=== PATIENT | female | born 1935 | race Caucasian/White ===

== ENCOUNTER 2016-12-03 15:25 | Emergency (ER) | payer MEDICARE, OTHER, BC ==
[2016-12-03 15:51] VITALS: BP 137/58
--- NOTE | 2016-12-03 16:35 | UC ---
Lower Extremity/Ankle HPI - HPI Summary HPI Summary: 80 yo female misjudged toilet seat and slide of injuring left side this occurred 2 weeks ago initially had left sided RAY/left neck pain and left foot pain the foot pain in the only pain she currently has no n/v/d no cp or sob - History of Current Complaint Chief Complaint: UCLowerExtremity Stated Complaint: FOOT INJURY Time Seen by Provider: 12/03/16 16:16 Hx Obtained From: Patient Onset/Duration: Sudden Onset, Lasting Weeks Severity Initially: Moderate Severity Currently: Mild Pain Intensity: 4 Pain Scale Used: 0-10 Numeric Aggravating Factor(s): Standing, Ambulation Alleviating Factor(s): Rest Able to Bear Weight: Yes - Allergies/Home Medications Allergies/Adverse Reactions: Allergies Allergy/AdvReac Type Severity Reaction Status Date / Time Bee Venom Allergy Swelling Verified 12/03/16 15:51 Sulfa Antibiotics Allergy Hives Verified 12/03/16 15:51 Home Medications: Home Medications Etanercept [Enbrel] 12/03/16 [History] Folic Acid TAB* [Folvite TAB*] 1 mg PO DAILY 12/03/16 [History Confirmed ] Methotrexate TAB* 4 tab PO 12/03/16 [History] PMH/Surg Hx/FS Hx/Imm Hx Previously Healthy: Yes Cardiovascular History Of: Reports: Hypertension Cancer History Of: Denies: Breast Cancer - Surgical History Surgical History: Yes Surgery Procedure, Year, and Place: BREAST REDUCTION, THUMB SURGERY, RIGHT KNEE REPLACEMENT - Family History Known Family History: Positive: Hypertension - Social History Alcohol Use: Daily Alcohol Amount: 1 GLASS/DAY Substance Use Type: None Smoking Status (MU): Former Smoker Type: Cigarettes Amount Used/How Often: 1/2 PACK DAY Have You Smoked in the Last Year: No When Did the Patient Quit Smoking/Using Tobacco: 1985 - Immunization History Most Recent Influenza Vaccination: NONE Most Recent Tetanus Shot: POSSIBLY 2011 Most Recent Pneumonia Vaccination: NONE Review of Systems Constitutional: Negative Skin: Negative Eyes: Negative ENT: Negative Respiratory: Negative Cardiovascular: Negative Gastrointestinal: Negative Genitourinary: Negative Motor: Negative Neurovascular: Negative Musculoskeletal: Arthralgia Neurological: Negative Psychological: Negative All Other Systems Reviewed And Are Negative: Yes Physical Exam Triage Information Reviewed: Yes Appearance: Well-Appearing, No Pain Distress, Well-Nourished Vital Signs: Initial Vital Signs Temp 97.8 F 12/03/16 15:45 Pulse 83 12/03/16 15:45 Resp 16 12/03/16 15:45 BP 137/58 12/03/16 15:45 Pulse Ox 100 12/03/16 15:45 Vital Signs Reviewed: Yes Eyes: Positive: Conjunctiva Clear ENT: Positive: Hearing grossly normal. Negative: Nasal congestion, Nasal drainage, Trismus, Muffled/hoarse voice Neck: Positive: Supple, Nontender Respiratory: Positive: Lungs clear, Normal breath sounds, No respiratory distress, No accessory muscle use Cardiovascular: Positive: RRR, No Murmur Musculoskeletal: Positive: Other: - see image Neurological: Positive: Alert Psychological Exam: Normal Skin Exam: Normal Lower Extremity Course/Dx - Differential Dx/Diagnosis Provider Diagnoses: fracture distal left 5th metatarsal Discharge - Discharge Plan Condition: Stable Disposition: HOME Patient Education Materials: Foot Fracture in Adults (ED) Referrals: Markel Evans MD [Medical Doctor] - 4 Days (you have a fracture of the distal 5th metatarsal) Additional Instructions: daniel ice twice daily tylenol or aleve if needed for pain post op shoe Images Feet (Multiple View): 1 - tender/swollen. normal giat. no ecchymosis
--- NOTE | 2016-12-03 16:41 | RAD ---
INDICATION: Left foot injury. TECHNIQUE: 3 views of the left foot were obtained. FINDINGS: The bones appear osteopenic. There is a transverse fracture of the distal metaphysis of the fifth metatarsal. The distal fragment is slightly displaced and angulated medial relative to the proximal fragment. No other fractures are seen. Joint spaces appear maintained. IMPRESSION: SLIGHTLY DISPLACED AND ANGULATED FRACTURE OF THE DISTAL FIFTH METATARSAL.
== END 2016-12-03 16:55 | disposition home or self-care (01) ==
LOC: UCEAST 15:25
DX: S92.352A Displaced fracture of fifth metatarsal bone, left foot, initial encounter for closed fracture (principal); W18.11XA Fall from or off toilet without subsequent striking against object, initial encounter; I10 Essential (primary) hypertension; Z88.2 Allergy status to sulfonamides; Z91.030 Bee allergy status; Z87.891 Personal history of nicotine dependence
CPT/HCPCS: 99212; G0463

== ENCOUNTER 2017-08-03 13:01 | Emergency (ER) | payer MEDICARE, OTHER, BC ==
[2017-08-03] MEDS ORDERED: Acetaminophen TAB* 325 MG PO ONE (13:24)
[2017-08-03 13:30] VITALS: BP 130/52
--- NOTE | 2017-08-03 13:38 | UC ---
Back Pain HPI - HPI Summary HPI Summary: Fell and hit back on Saturday (3 days ago) while getting dresses. She has thoracic pain and pain in posterior right and left ribs---no sob - History of Current Complaint Chief Complaint: UCChestPain Stated Complaint: FELL BACK PAIN Time Seen by Provider: 08/03/17 13:26 Hx Obtained From: Patient ?: No Onset/Duration: Sudden Onset, Lasting Days - 3 Timing: Constant Severity Initially: Moderate Severity Currently: Moderate Pain Intensity: 5 Pain Scale Used: 0-10 Numeric Back Pain: Is Diffuse Character: Aching Aggravating Factor(s): Movement Alleviating Factor(s): Nothing - Allergies/Home Medications Allergies/Adverse Reactions: Allergies Allergy/AdvReac Type Severity Reaction Status Date / Time Bee Venom Allergy Swelling Verified 08/03/17 13:23 Sulfa Antibiotics Allergy Hives Verified 08/03/17 13:23 PMH/Surg Hx/FS Hx/Imm Hx Previously Healthy: No Endocrine History: Dyslipidemia Cardiovascular History: Hypertension GI/ History: Gastroesophageal Reflux - Surgical History Surgical History: Yes Surgery Procedure, Year, and Place: BREAST REDUCTION, THUMB SURGERY, RIGHT KNEE REPLACEMENT - Family History Known Family History: Positive: Hypertension - Social History Occupation: Retired Lives: With Family Alcohol Use: Daily Alcohol Amount: 1 GLASS/DAY Substance Use Type: None Smoking Status (MU): Former Smoker Type: Cigarettes Amount Used/How Often: 1/2 PACK DAY Have You Smoked in the Last Year: No When Did the Patient Quit Smoking/Using Tobacco: 1985 - Immunization History Most Recent Influenza Vaccination: NONE Most Recent Tetanus Shot: POSSIBLY 2011 Most Recent Pneumonia Vaccination: NONE Review of Systems Constitutional: Negative Skin: Negative Eyes: Negative ENT: Negative Respiratory: Negative Cardiovascular: Negative Gastrointestinal: Negative Genitourinary: Negative Motor: Negative Neurovascular: Negative Musculoskeletal: Arthralgia - ribs and thoracic spine pain Neurological: Negative Psychological: Negative Is Patient Immunocompromised?: No All Other Systems Reviewed And Are Negative: Yes Physical Exam Triage Information Reviewed: Yes Appearance: Well-Appearing, No Pain Distress, Well-Nourished Vital Signs Reviewed: Yes Eye Exam: Normal Eyes: Positive: Conjunctiva Clear ENT Exam: Normal ENT: Positive: Normal ENT inspection, Hearing grossly normal. Negative: Nasal congestion, Trismus, Muffled voice, Hoarse voice Dental Exam: Normal Neck exam: Normal Neck: Positive: Supple, Nontender, No Lymphadenopathy Respiratory Exam: Normal Respiratory: Positive: Chest non-tender, Lungs clear, Normal breath sounds, No respiratory distress, No accessory muscle use Cardiovascular Exam: Normal Cardiovascular: Positive: RRR, No Murmur, Pulses Normal, Brisk Capillary Refill Musculoskeletal Exam: Normal Musculoskeletal: Positive: Strength Intact, ROM Intact, No Edema Neurological Exam: Normal Neurological: Positive: Alert, Muscle Tone Normal Psychological Exam: Normal Skin Exam: Normal Diagnostics - Radiology No standard instances Xray Interpretation: No Acute Changes Radiology Interpretation Completed By: Radiologist Back Pain Course/Dx - Course Course Of Treatment: warm compress, tylenol, incentive spirometer, follow with pcp for cough fever sob, - Differential Dx/Diagnosis Provider Diagnoses: Rib Contusion, Muscle strain Discharge - Discharge Plan Condition: Stable Disposition: HOME Patient Education Materials: Acetaminophen (By mouth), Rib Contusion (ED) Referrals: Ganga Kerr MD [Primary Care Provider] - 5 Days
--- NOTE | 2017-08-03 14:16 | RAD ---
Indication: Fall. Comparison: March 08, 2014 chest radiograph. Technique: PA chest and bilateral rib series. 8 views obtained. Report: Mild bibasilar linear subsegmental atelectasis. Negative for pleural effusion or pneumothorax. Upper normal heart size. Unremarkable central pulmonary vasculature and mediastinal contours. No RIGHT or LEFT rib fractures evident. RIGHT breast surgical clips noted. Costochondral calcifications. IMPRESSION: 1. Mild bibasilar linear subsegmental atelectasis. Negative for pneumothorax. 2. No rib fracture evident. Thoracic spine radiographs. Indication: Pain post fall. Comparison: March 08, 2014 chest radiograph. Technique: AP and lateral views thoracic spine. Report: Multilevel mild degenerative spondylosis. Mild increased thoracic kyphosis. Negative for thoracic spine fracture. Unremarkable paravertebral soft tissue contours. IMPRESSION: 1. Negative for traumatic injury of the thoracic spine. 2. Multilevel mild degenerative spondylosis without significant change.
== END 2017-08-03 14:35 | disposition home or self-care (01) ==
LOC: UCEAST 13:01
DX: S20.219A Contusion of unspecified front wall of thorax, initial encounter (principal); S29.011A Strain of muscle and tendon of front wall of thorax, initial encounter; Z87.891 Personal history of nicotine dependence; W18.39XA Other fall on same level, initial encounter; Y92.9 Unspecified place or not applicable; Z88.2 Allergy status to sulfonamides; I10 Essential (primary) hypertension; M47.819 Spondylosis without myelopathy or radiculopathy, site unspecified
CPT/HCPCS: 71110; 72070; 99212; A9270-GY; G0463

== ENCOUNTER 2018-04-26 15:57 | Emergency (ER) | payer MEDICARE, OTHER, BC ==
[2018-04-26 16:14] VITALS: BP 167/93
--- NOTE | 2018-04-26 17:48 | RAD ---
INDICATION: LEFT wrist pain post fall. Swelling. COMPARISON: No relevant prior exams available on the [facility] [place] PACS for comparison. TECHNIQUE: AP, lateral, and oblique views LEFT wrist. REPORT: Normal articular alignment. Bone density appears decreased throughout. Mild cortical and trabecular irregularity along the radial margin of the scaphoid bone is concerning for a potential nondisplaced scaphoid fracture. Healed fracture of the fifth metacarpal diaphysis noted. 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 Nonfocal soft tissue swelling about the wrist. IMPRESSION: #. Potential although not definitive scaphoid fracture. Correlate with clinical assessment and consider dedicated scaphoid view for further evaluation.
--- NOTE | 2018-04-26 18:36 | UC ---
Hand/Wrist HPI - HPI Summary HPI Summary: 82 y/o female presents to the urgent care c/o c/o falling down while getting out of the car at home yesterday on a little hill. Injury/pain to left wrist. - History Of Current Complaint Chief Complaint: UCUpperExtremity Stated Complaint: WRIST INJURY Time Seen by Provider: 04/26/18 18:19 Hx Obtained From: Patient Pain Intensity: 5 - Allergies/Home Medications Allergies/Adverse Reactions: Allergies Allergy/AdvReac Type Severity Reaction Status Date / Time bee pollen Allergy Swelling Verified 04/26/18 16:15 Sulfa (Sulfonamide Allergy Hives Verified 04/26/18 16:15 Antibiotics) PMH/Surg Hx/FS Hx/Imm Hx - Surgical History Surgical History: Yes Surgery Procedure, Year, and Place: BREAST REDUCTION, THUMB SURGERY, RIGHT KNEE REPLACEMENT - Family History Known Family History: Positive: Hypertension - Social History Alcohol Use: Occasionally Alcohol Amount: 1 GLASS/DAY Substance Use Type: None Smoking Status (MU): Former Smoker Type: Cigarettes Amount Used/How Often: 1/2 PACK DAY Have You Smoked in the Last Year: No When Did the Patient Quit Smoking/Using Tobacco: 1985 - Immunization History Most Recent Influenza Vaccination: NONE Most Recent Tetanus Shot: POSSIBLY 2011 Most Recent Pneumonia Vaccination: NONE Physical Exam - Summary Physical Exam Summary: Vital Signs Reviewed: Yes General: Well-Appearing, No Pain Distress, Well-Nourished - female w/o any apparent distress Eyes: Positive: Conjunctiva Clear - PERRLA, EOMI ENT: Positive: Normal ENT inspection, Hearing grossly normal, Pharynx normal, TMs normal, Uvula midline Neck: Positive: Supple, Nontender, No Lymphadenopathy Respiratory: Positive: Chest non-tender, Lungs clear, Normal breath sounds, No respiratory distress Cardiovascular: Positive: RRR, No Murmur, Pulses Normal, Brisk Capillary Refill Abdomen Description: Positive: Nontender, No Organomegaly, Soft. Negative: CVA Tenderness (R), CVA Tenderness (L) Bowel Sounds: Positive: Present Musculoskeletal: Positive: Strength Intact, Other: Neurological Exam: Normal Musculoskeletal: Positive: Wrist: the R wrist is without obvious asymmetry or deformity when compared to the L wrist. No surface trauma, open wounds, swelling , or obvious deformity. No overlying erythema or warmth. No bony crepitus. Point tenderness over the thenar eminence and ventral side of wrist. No scaphoid fullness or tenderness to direct palpation or axial load. Decreased ROM due to pain. Motor/sensory function of ulnar, radial, median nerves intact. Ulnar and radial pulses intact. Psychological Exam: Normal Skin Exam: Normal Triage Information Reviewed: Yes Vital Signs: Initial Vital Signs Temp 98.1 F 04/26/18 16:11 Pulse 72 04/26/18 16:11 Resp 18 04/26/18 16:11 BP 167/93 04/26/18 16:11 Pulse Ox 98 04/26/18 16:11 Hand/Wrist Course/Dx - Differential Dx/Diagnosis Differential Diagnosis/HQI/PQRI: Abrasion, Contusion, Fracture, Sprain, Strain Provider Diagnoses: 1- Left wrist pain s/p injury. 2- Left scaphoid fracture. 3- Uncontrolled HTN Discharge - Sign-Out/Discharge Documenting (check all that apply): Patient Departure - D/C home All imaging exams completed and their final reports reviewed: Yes - Discharge Plan Condition: Stable Disposition: HOME Prescriptions: Acetaminophen TAB* [Tylenol TAB*] 650 mg PO Q6H PRN #30 tab PRN Reason: Pain Patient Education Materials: Low-Sodium Diet (ED), Scaphoid Fracture (ED) Referrals: Ganga Kerr MD [Primary Care Provider] - 3 Days Héctor Bauman MD [Medical Doctor] - 2 Days Additional Instructions: 1-Please take Tylenol PO q4-6hrs prn to alleviate pain and swelling. 2-Please apply ice, keep your wrist immobilized with the splint, and shoulder sling. Avoid heavy lifting or strenuous exercise 3- Please f/u with Orthopedic Dr Bauman in 2 days for further evaluation and treatment. 4-Your BP is elevated today. please decrease salt in your diet, monitor BP and if it continues to be elevated please f/u with your PCP for further management - Billing Disposition and Condition Condition: STABLE Disposition: Home
== END 2018-04-26 18:55 | disposition home or self-care (01) ==
LOC: UCEAST 15:57
DX: S62.002A Unspecified fracture of navicular [scaphoid] bone of left wrist, initial encounter for closed fracture (principal); M25.532 Pain in left wrist; I10 Essential (primary) hypertension; Z91.030 Bee allergy status; Z88.2 Allergy status to sulfonamides; Z96.651 Presence of right artificial knee joint; Z87.891 Personal history of nicotine dependence; W19.XXXA Unspecified fall, initial encounter; Y92.099 Unspecified place in other non-institutional residence as the place of occurrence of the external cause
CPT/HCPCS: 99211; G0463